=== PATIENT | female | born 1965 | race Caucasian/White ===

== ENCOUNTER 2016-10-21 12:28 | Inpatient (IN) | payer OTHER ==
[~2016-10-21] VITALS: Ht 162.6 cm; Wt 81.0 kg
[~2016-10-21 12:28] MED LIST: ACETAMINOP160 MG/51 GT; ARTIFICIAL TEA3.5 G3 OP; ASCORBIC ACID250 MG GT; ATIVAN0.5 MG GT; ATIVAN0.5 MG PO; Ativan GT; BACLOFEN10 MG GT; BACLOFEN10 MG PO; BACLOFEN20 MG GT; BACLOFEN20 MG PO; BENEFIBER98 GM GT; CALCIUM CA1250 MG/5 GT; CALCIUM GT; COLACE10 MG/ML G-TUBE; COLACE10 MG/ML GT; COLACE60 MG/15 M PO; CYMBALTA60 MG GT; CYMBALTA60 MG PO; Colace GT; DEPAKENE250 MG/5 M GT; DULCOLAX10 MG PR; DUONEB 2.5-0.5 M3 ML IH; DURAGESIC12 MCG TD; DURAGESIC25 MCG TD; Depakene GT; DuoNeb IH; FENTANYL; FENTANYL1 EAC4 TD; FEOSOL300 MG/5 M GT; FERROUS SU220 MG/51 GT; GABAPENTIN300 MG GT; GLUCAGEN1 MG IM/SC; GUIATUSS DM SY240 ML GT; JUVEN PACKET1 EACH GT; KEFLEX500 MG PO; LEVOTH; LEVOTHYROXINE50 MCG GT; LORAZEPAM0.5 MG GT; Levothroid,Synthroid GT; Lioresal GT; Lovenox SC; MULTIPLE VITAM1 EACH GT; MULTIVITAMIN1 EAC2 GT; Metamucil Packet GT; NOVOLOG PE100 UNITS/ SC; OXYCODONE HCL5 M1; OXYCODONE HCL5 M1 GT; PREVACID SOLUTA30 MG GT; PROSOURCE LIQUI30 ML GT; PROSOURCE275 GM GT; ROBITUSSIN100 MG/5 M; ROXICODONE GT; SENOKOT; SENOKOT,SENN1 TABLET GT; SENOKOT5 ML GT; SEROQUEL; SEROQUEL100 MG GT; SEROQUEL200 MG GT; SEROQUEL200 MG PO; SEROquel GT; THERAGRAN5 ML GT; Tears Naturale II,Ar BOTH EYES; VALPROIC A250 MG/5 M GT; VITAMIN C250 M1 GT; VITAMIN D31000 UNI1 GT; VITAMIN D31000 UNIT GT; VITAMIN D400 UNIT GT; Vitamin D GT; Zosyn IV; [UNRECOGNIZED DRUG - MIXTURE] GT; [UNRECOGNIZED DRUG - OTHER] BOTH EYES; [UNRECOGNIZED DRUG - OTHER] BOTH EYES; [UNRECOGNIZED DRUG - OTHER] GT; [UNRECOGNIZED DRUG - OTHER] GT
[2016-10-21 13:38] LABS: HEMATOCRIT 40.8 % (36.0-46.0); MCH 31.5 PG (29.0-34.0); MCHC 33.6 G/DL (30.0-36.0); MCV 93.8 FL (83-99); MEAN PLAT.VOLUME 9.7 uM^3 (9.5-12.4); PLATELET COUNT 64 K/uL (156-360); RBC DIS.WIDTH-CV 15.5 % (11.8-14.6); RBC DIS.WIDTH-SD 50.7 % (39-53); RED BLOOD COUNT 4.35 M/uL (3.80-5.20); WHITE BLOOD COUNT 6.2 K/uL (4.1-10.2)
[2016-10-21 13:42] LABS: EOSINOPHIL (%) 4.2 % (0-5); EOSINOPHIL COUNT 0.3 K/uL (0-0.3); IMMATURE GRANULOCYTE (%) 0.5 % (0.0-0.7); IMMATURE GRANULOCYTE COUNT 0.3 K/uL; LYMPHOCYTE COUNT 2.3 K/uL (1.0-2.8); MONOCYTE (%) 16.6 % (3-12); NEUTROPHIL (%) 40.4 % (45-76); NEUTROPHIL COUNT 2.5 K/uL (1.8-6.4)
[2016-10-21 13:47] LABS: INTER. NORMALIZED RATIO 1.1; PROTHROMBIN TIME 10.7 (9.2-11.2)
[2016-10-21 13:50] LABS: CHLORIDE 103 mEq/L (99-109); SODIUM 137 mEq/L (136-147)
[2016-10-21 13:52] LABS: GLUCOSE 81 mg/dL (70-99)
[2016-10-21 13:53] LABS: ANION GAP 9 MEQ/L (2-14)
[2016-10-21 13:55] LABS: GFR ESTIMATE (CALCULATED) > 59 mL/min/
[2016-10-21 13:56] LABS: UREA NITROGEN (BUN) 18 mg/dL (9-23)
[2016-10-21] MEDS ORDERED: SEROQUEL50 MG GT (14:20)
[2016-10-21] MEDS ORDERED: CACARB500L GT (14:21)
[2016-10-21] MEDS ORDERED: ZANTAC15 MG/ML GT (14:23)
[2016-10-21] MEDS ORDERED: SENOKOT,SENN1 TABLET GT (14:24)
[2016-10-21] MEDS ORDERED: THERA1 EAC1 GT (14:25)
[2016-10-21] MEDS ORDERED: BISAC-EVAC10 MG PR (14:25)
[2016-10-21] MEDS ORDERED: FEROSUL220 MG/51 GT (14:39)
[2016-10-21] MEDS ORDERED: LORAZEPAM0.5 MG GT (14:39)
[2016-10-21] MEDS ORDERED: DEPAKENE250 MG/5 M GT (14:42)
[2016-10-21] MEDS ORDERED: FLORANEX GRANU1 EACH GT (14:43)
[2016-10-21] MEDS ORDERED: ONDANSETRON HCL4 MG GT (14:45)
[2016-10-21] MEDS ORDERED: IBUPROFEN100 MG/5 M GT (14:45)
[2016-10-21] MEDS ORDERED: CYMBALTA30 MG GT (14:48)
[2016-10-21] MEDS ORDERED: CYMBALTA60 MG GT (14:49)
[2016-10-21] MEDS ORDERED: MYCOSTATIN1 APPLICAT TP (14:51)
[2016-10-21 23:43] VITALS: BP 127/53
[2016-10-22 04:01] VITALS: BP 94/50
[2016-10-22 06:56] LABS: EOSINOPHIL (%) 1.7 % (0-5); EOSINOPHIL COUNT 0.1 K/uL (0-0.3); HEMATOCRIT 39.7 % (36.0-46.0); IMMATURE GRANULOCYTE (%) 0.2 % (0.0-0.7); IMMATURE GRANULOCYTE COUNT 0.1 K/uL; LYMPHOCYTE COUNT 1.2 K/uL (1.0-2.8); MCH 31.5 PG (29.0-34.0); MCHC 33.5 G/DL (30.0-36.0); MCV 94.1 FL (83-99); MEAN PLAT.VOLUME 9.7 uM^3 (9.5-12.4); MONOCYTE (%) 14.3 % (3-12); MONOCYTE COUNT 0.6 K/uL (0-0.8); NEUTROPHIL (%) 53.3 % (45-76); NEUTROPHIL COUNT 2.2 K/uL (1.8-6.4); RBC DIS.WIDTH-CV 15.6 % (11.8-14.6); RBC DIS.WIDTH-SD 52.1 % (39-53); RED BLOOD COUNT 4.22 M/uL (3.80-5.20)
[2016-10-22 06:58] LABS: PLATELET COUNT 286 K/uL (156-360); WHITE BLOOD COUNT 4.1 K/uL (4.1-10.2)
[2016-10-22 07:33] LABS: ANION GAP 9 MEQ/L (2-14); CHLORIDE 106 MEQ/L (99-109); GFR ESTIMATE (CALCULATED) > 59 mL/min/; GLUCOSE 70 mg/dL (70-99); POTASSIUM 4.9 MEQ/L (3.7-5.4); SAMPLE HEMOLYSIS CHECK 0; SAMPLE ICTERIC CHECK 0; SAMPLE LIPEMIA CHECK 0; SODIUM 139 MEQ/L (136-147); UREA NITROGEN (BUN) 16 mg/dL (9-23)
[2016-10-22 08:44] VITALS: BP 103/54
[2016-10-22 12:04] VITALS: BP 105/63
[2016-10-22 16:30] VITALS: BP 118/73
[2016-10-22 20:43] VITALS: BP 120/53
[2016-10-23] VITALS (7 sets, daily range): BP systolic 96–176; BP diastolic 56–67
[2016-10-24 04:00] VITALS: BP 140/59
[2016-10-24 07:51] VITALS: BP 123/68
[2016-10-24 09:03] LABS: HEMATOCRIT 39.7 % (36.0-46.0); MCH 31.8 PG (29.0-34.0); MCHC 33.2 G/DL (30.0-36.0); MCV 95.7 FL (83-99); PLATELET COUNT 222 K/uL (156-360); RBC DIS.WIDTH-CV 15.4 % (11.8-14.6); RBC DIS.WIDTH-SD 53.7 % (39-53); RED BLOOD COUNT 4.15 M/uL (3.80-5.20)
[2016-10-24 09:09] LABS: WHITE BLOOD COUNT 5.4 K/uL (4.1-10.2)
[2016-10-24 09:16] LABS: ANION GAP 7 MEQ/L (2-14); CHLORIDE 103 MEQ/L (99-109); GFR ESTIMATE (CALCULATED) > 59 mL/min/; GLUCOSE 73 mg/dL (70-99); POTASSIUM 4.3 MEQ/L (3.7-5.4); SAMPLE HEMOLYSIS CHECK 0; SAMPLE ICTERIC CHECK 0; SAMPLE LIPEMIA CHECK 0; SODIUM 138 MEQ/L (136-147); UREA NITROGEN (BUN) 15 mg/dL (9-23)
[2016-10-24 09:54] LABS: EOSINOPHIL COUNT 0.1 K/uL (0-0.3); HEMATOLOGY COMMENT 1 SMEAR COMPATIBLE; IMMATURE GRANULOCYTE (%) 0.2 % (0.0-0.7); LYMPHOCYTE COUNT 2.4 K/uL (1.0-2.8); MONOCYTE (%) 21.6 % (3-12); MONOCYTE COUNT 1.2 K/uL (0-0.8); NEUTROPHIL (%) 32.1 % (45-76); NEUTROPHIL COUNT 1.7 K/uL (1.8-6.4); USER ID SDF
[2016-10-24 16:20] VITALS: BP 153/79
[2016-10-25 00:12] VITALS: BP 104/56
[2016-10-25 04:35] VITALS: BP 106/59
[2016-10-25 07:59] VITALS: BP 150/79
[2016-10-25 16:58] VITALS: BP 116/79
[2016-10-25 19:38] VITALS: BP 132/60
[2016-10-26] VITALS (7 sets, daily range): BP systolic 93–136; BP diastolic 52–98
[2016-10-26 11:59] LABS: GFR ESTIMATE (CALCULATED) > 59 mL/min/
[2016-10-26 12:02] LABS: VANCOMYCIN, TROUGH 15.2 MCG/ML (10-20)
[2016-10-27 07:32] LABS: GFR ESTIMATE (CALCULATED) > 59 mL/min/
[2016-10-27 09:29] VITALS: BP 97/54
[2016-10-27 18:47] VITALS: BP 112/70
[2016-10-27 22:09] VITALS: BP 163/77
[2016-10-27 23:15] VITALS: BP 90/56
[2016-10-28 08:00] VITALS: BP 105/63
[2016-10-28 09:00] LABS: HEMATOCRIT 37.4 % (36.0-46.0); MCH 31.4 PG (29.0-34.0); MCHC 33.7 G/DL (30.0-36.0); MCV 93.3 FL (83-99); RBC DIS.WIDTH-CV 14.8 % (11.8-14.6); RBC DIS.WIDTH-SD 50.5 % (39-53); RED BLOOD COUNT 4.01 M/uL (3.80-5.20)
[2016-10-28 09:03] LABS: ANION GAP 6 MEQ/L (2-14); CHLORIDE 105 MEQ/L (99-109); POTASSIUM 4.8 MEQ/L (3.7-5.4); SAMPLE HEMOLYSIS CHECK 2; SAMPLE ICTERIC CHECK 0; SAMPLE LIPEMIA CHECK 0; SODIUM 139 MEQ/L (136-147)
[2016-10-28 09:11] LABS: GFR ESTIMATE (CALCULATED) > 59 mL/min/; GLUCOSE 80 mg/dL (70-99); UREA NITROGEN (BUN) 21 mg/dL (9-23)
[2016-10-28 10:21] LABS: MEAN PLAT.VOLUME 11.9 uM^3 (9.5-12.4)
[2016-10-28 10:51] LABS: PLATELET COUNT 127 K/uL (156-360)
[2016-10-28 12:11] VITALS: BP 123/84
[2016-10-28 12:41] LABS: POTASSIUM 4.4 MEQ/L (3.7-5.4)
[2016-10-28 16:00] VITALS: BP 108/70
[2016-10-29] VITALS: BP 108/64
[2016-10-29 06:15] LABS: HEMATOCRIT 42.1 % (36.0-46.0); MCH 30.5 PG (29.0-34.0); MCHC 32.3 G/DL (30.0-36.0); MCV 94.4 FL (83-99); RBC DIS.WIDTH-CV 14.8 % (11.8-14.6); RBC DIS.WIDTH-SD 50.3 % (39-53); RED BLOOD COUNT 4.46 M/uL (3.80-5.20); WHITE BLOOD COUNT 4.6 K/uL (4.1-10.2)
[2016-10-29 06:38] LABS: MEAN PLAT.VOLUME 10.5 uM^3 (9.5-12.4)
[2016-10-29 06:45] LABS: PLATELET COUNT 185 K/uL (156-360)
[2016-10-29 07:10] LABS: ANION GAP 6 MEQ/L (2-14); CHLORIDE 104 MEQ/L (99-109); GFR ESTIMATE (CALCULATED) > 59 mL/min/; GLUCOSE 78 mg/dL (70-99); POTASSIUM 4.3 MEQ/L (3.7-5.4); SAMPLE HEMOLYSIS CHECK 0; SAMPLE ICTERIC CHECK 0; SAMPLE LIPEMIA CHECK 0; SODIUM 142 MEQ/L (136-147); UREA NITROGEN (BUN) 13 mg/dL (9-23)
[2016-10-29 08:45] VITALS: BP 124/74
[2016-10-29 16:00] VITALS: BP 121/67
[2016-10-29 21:43] VITALS: BP 120/82
[2016-10-30] VITALS (7 sets, daily range): BP systolic 92–136; BP diastolic 50–79
[2016-10-30 07:11] LABS: ANION GAP 11 MEQ/L (2-14); CHLORIDE 105 MEQ/L (99-109); GFR ESTIMATE (CALCULATED) > 59 mL/min/; SAMPLE HEMOLYSIS CHECK 0; SAMPLE ICTERIC CHECK 0; SAMPLE LIPEMIA CHECK 0; SODIUM 138 MEQ/L (136-147); UREA NITROGEN (BUN) 15 mg/dL (9-23)
[2016-10-30 07:14] LABS: GLUCOSE 147 mg/dL (70-99)
[2016-10-30 07:16] LABS: EOSINOPHIL (%) 0 % (0-5); HEMATOCRIT 35.4 % (36.0-46.0); IMMATURE GRANULOCYTE (%) 0.2 % (0.0-0.7); LYMPHOCYTE COUNT 1.7 K/uL (1.0-2.8); MCH 30.7 PG (29.0-34.0); MCHC 32.5 G/DL (30.0-36.0); MCV 94.4 FL (83-99); MEAN PLAT.VOLUME 10.3 uM^3 (9.5-12.4); MONOCYTE (%) 11.4 % (3-12); MONOCYTE COUNT 1.4 K/uL (0-0.8); NEUTROPHIL (%) 74.3 % (45-76); PLATELET COUNT 182 K/uL (156-360); RBC DIS.WIDTH-CV 14.7 % (11.8-14.6); RBC DIS.WIDTH-SD 50.3 % (39-53); RED BLOOD COUNT 3.75 M/uL (3.80-5.20); WHITE BLOOD COUNT 12.1 K/uL (4.1-10.2)
[2016-10-31] VITALS (7 sets, daily range): BP systolic 88–140; BP diastolic 48–73
[2016-10-31 06:11] LABS: EOSINOPHIL (%) 0 % (0-5); HEMATOCRIT 29.3 % (36.0-46.0); IMMATURE GRANULOCYTE (%) 0.2 % (0.0-0.7); LYMPHOCYTE COUNT 2.8 K/uL (1.0-2.8); MCH 30.7 PG (29.0-34.0); MCHC 32.1 G/DL (30.0-36.0); MCV 95.8 FL (83-99); MEAN PLAT.VOLUME 10.5 uM^3 (9.5-12.4); MONOCYTE (%) 15.5 % (3-12); MONOCYTE COUNT 2.7 K/uL (0-0.8); NEUTROPHIL (%) 68.6 % (45-76); NEUTROPHIL COUNT 12.1 K/uL (1.8-6.4); PLATELET COUNT 187 K/uL (156-360); RBC DIS.WIDTH-CV 15.1 % (11.8-14.6); RBC DIS.WIDTH-SD 53.2 % (39-53); RED BLOOD COUNT 3.06 M/uL (3.80-5.20); WHITE BLOOD COUNT 17.6 K/uL (4.1-10.2)
[2016-10-31 06:21] LABS: ANION GAP 4 MEQ/L (2-14); CHLORIDE 105 MEQ/L (99-109); GFR ESTIMATE (CALCULATED) > 59 mL/min/; GLUCOSE 112 mg/dL (70-99); POTASSIUM 4.2 MEQ/L (3.7-5.4); SAMPLE HEMOLYSIS CHECK 0; SAMPLE ICTERIC CHECK 0; SAMPLE LIPEMIA CHECK 0; SODIUM 143 MEQ/L (136-147); UREA NITROGEN (BUN) 15 mg/dL (9-23)
[2016-10-31 14:00] LABS: ADD MIUA? NO; BILIRUBIN NEGATIVE; BLOOD NEGATIVE; COLOR YELLOW ((YELLOW)); GLUCOSE (STRIP) 100; KETONES TRACE; LEUKOCYTES NEGATIVE; NITRITE NEGATIVE; PROTEIN (STRIP) NEGATIVE; SPECIFIC GRAVITY 1.028 (1.000-1.030)
[2016-10-31 14:29] LABS: HEMATOCRIT 29.9 % (36.0-46.0); MCH 30.6 PG (29.0-34.0); MCHC 31.4 G/DL (30.0-36.0); MCV 97.4 FL (83-99); MEAN PLAT.VOLUME 10.3 uM^3 (9.5-12.4); PLATELET COUNT 160 K/uL (156-360); RBC DIS.WIDTH-CV 15.2 % (11.8-14.6); RBC DIS.WIDTH-SD 54.4 % (39-53); RED BLOOD COUNT 3.07 M/uL (3.80-5.20); WHITE BLOOD COUNT 14.4 K/uL (4.1-10.2)
[2016-10-31 14:44] LABS: EOSINOPHIL (%) 0 % (0-5); IMMATURE GRANULOCYTE (%) 0.2 % (0.0-0.7); LYMPHOCYTE COUNT 2.3 K/uL (1.0-2.8); MONOCYTE (%) 11.7 % (3-12); MONOCYTE COUNT 1.7 K/uL (0-0.8); NEUTROPHIL (%) 71.7 % (45-76); NEUTROPHIL COUNT 10.3 K/uL (1.8-6.4)
[2016-11-01] VITALS (7 sets, daily range): BP systolic 95–109; BP diastolic 53–64
[2016-11-01 05:07] LABS: HEMATOCRIT 26.2 % (36.0-46.0); MCH 30.3 PG (29.0-34.0); MCHC 31.3 G/DL (30.0-36.0); MCV 96.7 FL (83-99); PLATELET COUNT 146 K/uL (156-360); RBC DIS.WIDTH-SD 52.6 % (39-53); RED BLOOD COUNT 2.71 M/uL (3.80-5.20); WHITE BLOOD COUNT 15.7 K/uL (4.1-10.2)
[2016-11-01 05:52] LABS: ANION GAP 7 MEQ/L (2-14); CHLORIDE 107 MEQ/L (99-109); GFR ESTIMATE (CALCULATED) > 59 mL/min/; GLUCOSE 101 mg/dL (70-99); POTASSIUM 3.7 MEQ/L (3.7-5.4); SAMPLE HEMOLYSIS CHECK 0; SAMPLE ICTERIC CHECK 0; SAMPLE LIPEMIA CHECK 0; SODIUM 144 MEQ/L (136-147); UREA NITROGEN (BUN) 15 mg/dL (9-23)
[2016-11-01 06:17] LABS: EOSINOPHIL (%) 0 % (0-5); IMMATURE GRANULOCYTE (%) 0.3 % (0.0-0.7); LYMPHOCYTE COUNT 2.6 K/uL (1.0-2.8); MONOCYTE (%) 15.1 % (3-12); MONOCYTE COUNT 2.4 K/uL (0-0.8); NEUTROPHIL (%) 67.7 % (45-76); NEUTROPHIL COUNT 10.6 K/uL (1.8-6.4)
[2016-11-01 14:45] LABS: HEMATOCRIT 25.4 % (36.0-46.0); MCV 96.6 FL (83-99)
[2016-11-01 16:41] LABS: INTERNAL CONTROL VALID? YES
[2016-11-02 04:24] VITALS: BP 97/60
[2016-11-02 05:57] LABS: NRBC (%) 0.8 /100 WBC (0-0)
[2016-11-02 06:20] LABS: EOSINOPHIL (%) 0.1 % (0-5); HEMATOCRIT 23.3 % (36.0-46.0); IMMATURE GRANULOCYTE (%) 0.2 % (0.0-0.7); LYMPHOCYTE COUNT 2.1 K/uL (1.0-2.8); MCH 30.6 PG (29.0-34.0); MCHC 32.2 G/DL (30.0-36.0); MCV 95.1 FL (83-99); MEAN PLAT.VOLUME 10.1 uM^3 (9.5-12.4); MONOCYTE (%) 15.9 % (3-12); MONOCYTE COUNT 1.4 K/uL (0-0.8); NEUTROPHIL (%) 58.7 % (45-76); PLATELET COUNT 128 K/uL (156-360); RBC DIS.WIDTH-CV 15.1 % (11.8-14.6); RBC DIS.WIDTH-SD 51.9 % (39-53); RED BLOOD COUNT 2.45 M/uL (3.80-5.20); WHITE BLOOD COUNT 8.5 K/uL (4.1-10.2)
[2016-11-02 06:21] LABS: ANION GAP 6 MEQ/L (2-14); CHLORIDE 108 MEQ/L (99-109); GFR ESTIMATE (CALCULATED) > 59 mL/min/; GLUCOSE 89 mg/dL (70-99); POTASSIUM 3.2 MEQ/L (3.7-5.4); SAMPLE HEMOLYSIS CHECK 0; SAMPLE ICTERIC CHECK 0; SAMPLE LIPEMIA CHECK 0; SODIUM 144 MEQ/L (136-147); UREA NITROGEN (BUN) 14 mg/dL (9-23)
[2016-11-02 09:11] VITALS: BP 122/74
[2016-11-02 11:35] VITALS: BP 128/73
[2016-11-02 15:31] VITALS: BP 125/70
[2016-11-02 19:29] VITALS: BP 114/64
[2016-11-02 23:53] VITALS: BP 97/55
[2016-11-03 03:32] VITALS: BP 117/69
[2016-11-03 05:36] LABS: EOSINOPHIL (%) 0.6 % (0-5); HEMATOCRIT 24.1 % (36.0-46.0); IMMATURE GRANULOCYTE (%) 0.4 % (0.0-0.7); LYMPHOCYTE COUNT 1.7 K/uL (1.0-2.8); MCH 29.8 PG (29.0-34.0); MCHC 31.5 G/DL (30.0-36.0); MCV 94.5 FL (83-99); MONOCYTE (%) 15.1 % (3-12); MONOCYTE COUNT 1.1 K/uL (0-0.8); NEUTROPHIL (%) 59.4 % (45-76); NEUTROPHIL COUNT 4.3 K/uL (1.8-6.4); NRBC (%) 1.5 /100 WBC (0-0); PLATELET COUNT 131 K/uL (156-360); RBC DIS.WIDTH-CV 14.8 % (11.8-14.6); RBC DIS.WIDTH-SD 50.9 % (39-53); RED BLOOD COUNT 2.55 M/uL (3.80-5.20); WHITE BLOOD COUNT 7.2 K/uL (4.1-10.2)
[2016-11-03 06:24] LABS: ANION GAP 6 MEQ/L (2-14); CHLORIDE 110 MEQ/L (99-109); GFR ESTIMATE (CALCULATED) > 59 mL/min/; GLUCOSE 85 mg/dL (70-99); SAMPLE HEMOLYSIS CHECK 0; SAMPLE ICTERIC CHECK 0; SAMPLE LIPEMIA CHECK 0; SODIUM 146 MEQ/L (136-147); UREA NITROGEN (BUN) 13 mg/dL (9-23)
[2016-11-03 06:28] LABS: POTASSIUM 3.9 MEQ/L (3.7-5.4)
[2016-11-03 07:32] VITALS: BP 115/60
[2016-11-03 19:40] LABS: C DIFF TOXIN NEGATIVE (NEGATIVE)
[2016-11-03 19:43] LABS: PROBE CHECK PASS; SPECIMEN PROCESSING CONTROL PASS
[2016-11-03 19:58] LABS: INTERNAL CONTROL VALID? YES
[2016-11-03 20:29] LABS: HEMATOCRIT 23.9 % (36.0-46.0); MCV 93.4 FL (83-99)
[2016-11-04] VITALS (15 sets, daily range): BP systolic 83–116; BP diastolic 48–64
[2016-11-04 07:18] LABS: ANION GAP 5 MEQ/L (2-14); CHLORIDE 108 MEQ/L (99-109); GFR ESTIMATE (CALCULATED) > 59 mL/min/; GLUCOSE 74 mg/dL (70-99); IRON 12 MCG/DL (35-150); POTASSIUM 4.1 MEQ/L (3.7-5.4); SAMPLE HEMOLYSIS CHECK 1; SAMPLE ICTERIC CHECK 0; SAMPLE LIPEMIA CHECK 0; SODIUM 144 MEQ/L (136-147); UREA NITROGEN (BUN) 10 mg/dL (9-23)
[2016-11-04 08:50] LABS: FERRITIN 20 NG/ML (10-291)
[2016-11-04 09:17] LABS: EOSINOPHIL (%) 3.8 % (0-5); EOSINOPHIL COUNT 0.2 K/uL (0-0.3); HEMATOCRIT 21.4 % (36.0-46.0); IMMATURE GRANULOCYTE (%) 1.2 % (0.0-0.7); IMMATURE GRANULOCYTE COUNT 0.1 K/uL; LYMPHOCYTE COUNT 1.4 K/uL (1.0-2.8); MCH 30.4 PG (29.0-34.0); MCHC 32.7 G/DL (30.0-36.0); MONOCYTE (%) 17.7 % (3-12); MONOCYTE COUNT 0.8 K/uL (0-0.8); NEUTROPHIL (%) 43.4 % (45-76); NEUTROPHIL COUNT 1.8 K/uL (1.8-6.4); RBC DIS.WIDTH-CV 14.8 % (11.8-14.6); RBC DIS.WIDTH-SD 50.5 % (39-53)
[2016-11-04 09:19] LABS: WHITE BLOOD COUNT 4.2 K/uL (4.1-10.2)
[2016-11-04 09:45] LABS: PLAT.SUFFICIENCY DECREASED; PLATELET COUNT 116 K/uL (156-360); USER ID CCL
[2016-11-05 06:26] LABS: EOSINOPHIL (%) 4.2 % (0-5); EOSINOPHIL COUNT 0.2 K/uL (0-0.3); HEMATOCRIT 33.9 % (36.0-46.0); IMMATURE GRANULOCYTE (%) 1.2 % (0.0-0.7); IMMATURE GRANULOCYTE COUNT 0.1 K/uL; LYMPHOCYTE COUNT 2.1 K/uL (1.0-2.8); MCH 28.5 PG (29.0-34.0); MCHC 31.6 G/DL (30.0-36.0); MCV 90.4 FL (83-99); MEAN PLAT.VOLUME 10.5 uM^3 (9.5-12.4); MONOCYTE (%) 14.2 % (3-12); MONOCYTE COUNT 0.7 K/uL (0-0.8); NEUTROPHIL (%) 38.5 % (45-76); NEUTROPHIL COUNT 1.9 K/uL (1.8-6.4); PLATELET COUNT 127 K/uL (156-360); RBC DIS.WIDTH-CV 15.1 % (11.8-14.6); RBC DIS.WIDTH-SD 49.1 % (39-53)
[2016-11-05 06:32] LABS: ANION GAP 4 MEQ/L (2-14); CHLORIDE 107 MEQ/L (99-109); GFR ESTIMATE (CALCULATED) > 59 mL/min/; GLUCOSE 72 mg/dL (70-99); SAMPLE HEMOLYSIS CHECK 0; SAMPLE ICTERIC CHECK 0; SAMPLE LIPEMIA CHECK 0; SODIUM 144 MEQ/L (136-147); UREA NITROGEN (BUN) 9 mg/dL (9-23)
[2016-11-05 06:35] LABS: NRBC (%) ND /100 WBC (0-0); RED BLOOD COUNT 3.75 M/uL (3.80-5.20)
[2016-11-05 07:41] LABS: EOSINOPHIL ABS CT 0.25; PLAT.SUFFICIENCY DECREASED; USER ID STC
[2016-11-05 07:52] VITALS: BP 101/62
[2016-11-05 09:37] LABS: D-DIMER LATEX NEGATIVE; FIBRINOGEN 301 MG/DL (160-450); INTER. NORMALIZED RATIO 1.1; PROTHROMBIN TIME 11.7 (9.2-11.2); PTT 27.8 (25-32)
[2016-11-05 09:52] LABS: ALKALINE PHOSPHATASE 60 IU/L (3-129); DIRECT BILIRUBIN 0.1 mg/dL (0.0-0.3); TOTAL BILIRUBIN 0.3 MG/DL (0.0-1.0)
[2016-11-05 09:58] LABS: SCHISTOCYTES NONE SEEN
[2016-11-05 13:47] LABS: ABSOLUTE RETICULOCYTE CT. 0.1 M/uL (0.02-0.08); IMM.RETIC FRACTION 37.2 % (3-19); RETIC HGB EQUIVALENT 29.5 (28-36); RETICULOCYTE COUNT 2.5 % (0.5-1.8)
[2016-11-05 17:14] VITALS: BP 109/68
[2016-11-05 20:29] VITALS: BP 112/64
[2016-11-06 00:08] VITALS: BP 99/61
[2016-11-06 04:30] VITALS: BP 107/61
[2016-11-06 06:47] LABS: NRBC (%) 0.9 /100 WBC (0-0)
[2016-11-06 07:05] LABS: EOSINOPHIL (%) 1.1 % (0-5); EOSINOPHIL COUNT 0.1 K/uL (0-0.3); HEMATOCRIT 36.1 % (36.0-46.0); IMMATURE GRANULOCYTE (%) 0.8 % (0.0-0.7); IMMATURE GRANULOCYTE COUNT 0.1 K/uL; LYMPHOCYTE COUNT 2.1 K/uL (1.0-2.8); MCH 29.3 PG (29.0-34.0); MCHC 32.1 G/DL (30.0-36.0); MCV 91.2 FL (83-99); MEAN PLAT.VOLUME 9.9 uM^3 (9.5-12.4); MONOCYTE (%) 15.3 % (3-12); MONOCYTE COUNT 1.2 K/uL (0-0.8); NEUTROPHIL (%) 55.2 % (45-76); NEUTROPHIL COUNT 4.2 K/uL (1.8-6.4); PLATELET COUNT 153 K/uL (156-360); RBC DIS.WIDTH-CV 14.9 % (11.8-14.6); RED BLOOD COUNT 3.96 M/uL (3.80-5.20)
[2016-11-06 07:06] LABS: ANION GAP 6 MEQ/L (2-14); CHLORIDE 110 MEQ/L (99-109); POTASSIUM 3.8 MEQ/L (3.7-5.4); SAMPLE HEMOLYSIS CHECK 0; SAMPLE ICTERIC CHECK 0; SAMPLE LIPEMIA CHECK 0; SODIUM 145 MEQ/L (136-147)
[2016-11-06 07:07] LABS: WHITE BLOOD COUNT 7.5 K/uL (4.1-10.2)
[2016-11-06 07:12] LABS: GFR ESTIMATE (CALCULATED) > 59 mL/min/; GLUCOSE 75 mg/dL (70-99); UREA NITROGEN (BUN) 20 mg/dL (9-23)
[2016-11-06 08:28] VITALS: BP 123/61
[2016-11-06 11:47] LABS: POINT-OF-CARE METER ID UU13113717
[2016-11-06 11:51] VITALS: BP 114/61
[2016-11-06 17:25] VITALS: BP 126/65
[2016-11-06 19:56] VITALS: BP 120/72
[2016-11-07 00:17] LABS: POINT-OF-CARE METER ID UU13113717
[2016-11-07 00:20] VITALS: BP 116/73
[2016-11-07 04:00] VITALS: BP 120/65
[2016-11-07 05:29] LABS: EOSINOPHIL (%) 0.8 % (0-5); EOSINOPHIL COUNT 0.1 K/uL (0-0.3); HEMATOCRIT 38.3 % (36.0-46.0); IMMATURE GRANULOCYTE (%) 0.5 % (0.0-0.7); LYMPHOCYTE COUNT 2.6 K/uL (1.0-2.8); MCH 29.2 PG (29.0-34.0); MCHC 31.6 G/DL (30.0-36.0); MCV 92.3 FL (83-99); MEAN PLAT.VOLUME 9.6 uM^3 (9.5-12.4); MONOCYTE (%) 12.6 % (3-12); NEUTROPHIL (%) 52.4 % (45-76); NEUTROPHIL COUNT 4.1 K/uL (1.8-6.4); PLATELET COUNT 187 K/uL (156-360); RBC DIS.WIDTH-SD 49.6 % (39-53); RED BLOOD COUNT 4.15 M/uL (3.80-5.20); WHITE BLOOD COUNT 7.8 K/uL (4.1-10.2)
[2016-11-07 06:49] LABS: POINT-OF-CARE METER ID UU13113717
[2016-11-07 12:37] VITALS: BP 126/76
[2016-11-07 15:38] VITALS: BP 134/76
[2016-11-07 23:48] VITALS: BP 123/66
[2016-11-08 03:50] VITALS: BP 150/82
[2016-11-08 07:52] VITALS: BP 123/75
[2016-11-08 15:43] VITALS: BP 121/79
[2016-11-08 19:15] VITALS: BP 131/76
[2016-11-08 23:22] VITALS: BP 115/65
[2016-11-09 03:07] VITALS: BP 130/71
[2016-11-09 07:27] VITALS: BP 125/74
[2016-11-09 11:51] VITALS: BP 121/72
[2016-11-09 16:08] VITALS: BP 124/76
[2016-11-09 20:38] VITALS: BP 124/78
[2016-11-10] VITALS (7 sets, daily range): BP systolic 111–129; BP diastolic 58–82
[2016-11-11 04:05] VITALS: BP 128/68
[2016-11-11 07:29] VITALS: BP 165/86
[2016-11-11 11:20] VITALS: BP 101/63
[2016-11-11 15:31] VITALS: BP 118/88
[2016-11-11 20:09] VITALS: BP 129/96
[2016-11-12 00:22] VITALS: BP 102/64
[2016-11-12 04:50] VITALS: BP 108/65
[2016-11-12 08:28] VITALS: BP 97/64
[2016-11-12 11:47] VITALS: BP 123/74
[2016-11-12 16:17] VITALS: BP 129/62
[2016-11-12 20:08] VITALS: BP 119/67
[2016-11-13 00:08] VITALS: BP 90/54
[2016-11-13 08:02] VITALS: BP 111/77
[2016-11-13 11:51] VITALS: BP 104/51
[2016-11-13 16:13] VITALS: BP 105/58
[2016-11-13 20:19] VITALS: BP 132/71
[2016-11-13 23:57] VITALS: BP 101/70
[2016-11-14 04:19] VITALS: BP 106/59
[2016-11-14 07:46] VITALS: BP 103/66
[2016-11-14 11:52] VITALS: BP 87/51
[2016-11-14 16:18] VITALS: BP 93/53
[2016-11-14 20:13] VITALS: BP 117/74
[2016-11-15 00:20] VITALS: BP 122/74
[2016-11-15 04:54] VITALS: BP 123/69
[2016-11-15 08:45] VITALS: BP 175/30
[2016-11-15 15:52] VITALS: BP 101/63
[2016-11-15 19:36] VITALS: BP 113/58
[2016-11-16 00:05] VITALS: BP 124/60
[2016-11-16 04:15] VITALS: BP 120/64
[2016-11-16 06:23] LABS: HEMATOCRIT 37.1 % (36.0-46.0); MCH 29.8 PG (29.0-34.0); MCV 96.1 FL (83-99); MEAN PLAT.VOLUME 10.9 uM^3 (9.5-12.4); PLATELET COUNT 211 K/uL (156-360); RBC DIS.WIDTH-CV 18.3 % (11.8-14.6); RBC DIS.WIDTH-SD 62.4 % (39-53); RED BLOOD COUNT 3.86 M/uL (3.80-5.20)
[2016-11-16 06:46] LABS: ANION GAP 3 MEQ/L (2-14); CHLORIDE 105 MEQ/L (99-109); GFR ESTIMATE (CALCULATED) > 59 mL/min/; GLUCOSE 78 mg/dL (70-99); POTASSIUM 4.5 MEQ/L (3.7-5.4); SAMPLE HEMOLYSIS CHECK 0; SAMPLE ICTERIC CHECK 0; SAMPLE LIPEMIA CHECK 0; SODIUM 142 MEQ/L (136-147); UREA NITROGEN (BUN) 16 mg/dL (9-23)
[2016-11-16 08:06] VITALS: BP 96/51
[2016-11-16 11:49] VITALS: BP 86/53
[2016-11-16 16:31] VITALS: BP 117/74
[2016-11-16 20:16] VITALS: BP 113/65
[2016-11-17 00:18] VITALS: BP 112/60
[2016-11-17 04:31] VITALS: BP 105/66
[2016-11-17 08:06] VITALS: BP 119/61
[2016-11-17] MEDS ORDERED: XARELTO15 MG PO (10:53)
[2016-11-17] MEDS ORDERED: ACETAMINOPHEN-1 EAC1 GT (10:55)
[2016-11-17] MEDS ORDERED: LORAZEPAM0.5 MG GT ×2 (10:55)
[2016-11-17] MEDS ORDERED: FENTANYL1 EAC5 TD (10:55)
[2016-11-17] MEDS ORDERED: XARELTO10 MG PO ×2 (10:56→11:34)
[2016-11-17 11:13] VITALS: BP 91/54
== END 2016-11-17 13:20 | DRG 474 ==
LOC: EME 12:28 → EDOF 15:09 → 3EAST 15:09
PROVIDERS: Emergency Medicine; Hospitalist; Internal Medicine; Internal Medicine Medical Oncology; Physician Assistant; Physician Assistant Medical; Student in an Organized Health Care Education/Training Program
PROC: 0Y6C0Z3 Detachment at Right Upper Leg, Low, Open Approach (ICD-10-PCS; principal; 2016-10-29)
PROC: 30233N1 Transfusion of Nonautologous Red Blood Cells into Peripheral Vein, Percutaneous Approach (ICD-10-PCS; 2016-11-04)
DX: S72.91XB Unspecified fracture of right femur, initial encounter for open fracture type I or II (principal); S72.491 Other fracture of lower end of right femur; J18.9 Pneumonia, unspecified organism; L03.115 Cellulitis of right lower limb; G82.50 Quadriplegia, unspecified; R64 Cachexia; M86.151 Other acute osteomyelitis, right femur; F33.40 Major depressive disorder, recurrent, in remission, unspecified; A41.9 Sepsis, unspecified organism; I82.890 Acute embolism and thrombosis of other specified veins; M24.562 Contracture, left knee; L89.892 Pressure ulcer of other site, stage 2; R47.02 Dysphasia; M24.561 Contracture, right knee; G89.29 Other chronic pain; R50.9 Fever, unspecified; D50.9 Iron deficiency anemia, unspecified; F41.9 Anxiety disorder, unspecified; K59.00 Constipation, unspecified; D69.6 Thrombocytopenia, unspecified; E03.9 Hypothyroidism, unspecified; I10 Essential (primary) hypertension; E04.2 Nontoxic multinodular goiter; Z87.820 Personal history of traumatic brain injury; M24.529 Contracture, unspecified elbow; Z88.8 Allergy status to other drugs, medicaments and biological substances; Z97.8 Presence of other specified devices; Z87.01 Personal history of pneumonia (recurrent); Z86.14 Personal history of Methicillin resistant Staphylococcus aureus infection
CPT/HCPCS: 31720; 70450; 71010; 71275; 73560; 74000; 74176; 74177; 80048; 80076; 80202; 81003; 82272; 82565; 82607; 82728; 82746; 82948; 83010 90; 83540; 84466; 84999; 85014; 85018; 85025; 85025 91; 85027; 85045; 85378; 85384; 85610; 85730; 86850; 86880; 86900; 86901; 86920; 87040; 87070; 87075; 87205; 87493; 88307; 93005; 93971; 94799; 99202; 99281; 99285; J0456; J0690; J0692; J1100; J1170; J1650; J2060; J2250; J2270; J2405; J3010; J3243; J3370; J7030; J7050; P9016

== ENCOUNTER → 2017-08-20 | Outpatient (CLI) | payer OTHER ==
[~2017-08-20] VITALS: Ht 167.6 cm; Wt 81.2 kg
[~2017-08-20] MED LIST changes: +ACETAMINOPHEN-1 EAC1 GT; +ANTI-DIARRH1 MG/5 ML GT; +BISAC-EVAC10 MG PR; +CACARB500L GT; +CYMBALTA30 MG GT; +FENTANYL1 EAC5 TD; +FEROSUL220 MG/51 GT; +FLORANEX GRANU1 EACH GT; +FLORANEX GRANU1 EACH PO; +IBUPROFEN100 MG/5 M GT; +MULTIVITAM9 MG/15 ML GT; +MYCOSTATIN1 APPLICAT TP; +ONDANSETRON HCL4 MG GT; +PAIN RELIE160 MG/52 PO; +SEROQUEL12.5 MG GT; +SEROQUEL50 MG GT; +SILACE50 MG/5 ML GT; +THERA1 EAC1 GT; +TYLENOL WITH C1 EACH GT; +XARELTO10 MG PO; +XARELTO15 MG PO; +ZANTAC15 MG/ML GT; +[UNRECOGNIZED DRUG - OTHER] GT
== END ==
LOC: AMB 14:00
DX: R19.7 Diarrhea, unspecified (principal); K64.8 Other hemorrhoids; Z53.09 Procedure and treatment not carried out because of other contraindication; Z74.01 Bed confinement status; Z93.1 Gastrostomy status; Z89.611 Acquired absence of right leg above knee; Z87.820 Personal history of traumatic brain injury; V89.2XXS Person injured in unspecified motor-vehicle accident, traffic, sequela; Z88.1 Allergy status to other antibiotic agents; Z87.891 Personal history of nicotine dependence
CPT/HCPCS: 88305; J3010

== ENCOUNTER → 2017-09-08 | Outpatient (CLI) | payer OTHER | LOC: RAD 09:00 | DX: R19.4 Change in bowel habit (principal); R19.7 Diarrhea, unspecified | CPT/HCPCS: 74000 ==